=== PATIENT | female | born 1995 | race American Indian/Alaskan Native ===

== ENCOUNTER 2017-03-19 19:34 | Emergency (ER) | payer MEDICAID ==
[2017-03-19] MEDS ORDERED: Nitrofurantoin Monohydrate/Macrocrystalline 100 MG Cap PO ONE ×2 (19:35→22:14)
[2017-03-19] MEDS ORDERED: Sodium Chloride 0.9% 1,000 ML IV ONE (19:38)
--- NOTE | 2017-03-19 19:40 | EDM.PDOC ---
ED HPI GENERAL MEDICAL PROBLEM - General Chief Complaint: General Stated Complaint: BLEEDING.PREG. NOT SURE HOW FAR ALONG Time Seen by Provider: 03/19/17 19:36 Source of Information: Reports: Patient History Limitations: Reports: No Limitations - History of Present Illness INITIAL COMMENTS - FREE TEXT/NARRATIVE: 21 yo [place] Female c/o early w/ vaginal bleeding this AM w/ wiping. Pt. is [id number] Onset: Today Onset Date: 03/19/17 Onset Time: 09:00 Duration: Hour(s): Location: Reports: Pelvis Improves with: Reports: None Worsens with: Reports: None Associated Symptoms: Reports: No Other Symptoms - Related Data Allergies Allergy/AdvReac Type Severity Reaction Status Date / Time Penicillins Allergy Cannot Verified 03/19/17 19:45 Remember Home Meds: Home Meds NK [No Known Home Meds] 0 mg PO DAILY 03/19/17 [History] ED ROS GENERAL - Review of Systems Review Of Systems: See Below Constitutional: Reports: No Symptoms HEENT: Reports: No Symptoms Respiratory: Reports: No Symptoms Cardiovascular: Reports: No Symptoms Endocrine: Reports: No Symptoms GI/Abdominal: Reports: No Symptoms : Reports: Other (pink @ 7AM) Musculoskeletal: Reports: No Symptoms Skin: Reports: No Symptoms Neurological: Reports: No Symptoms Psychiatric: Reports: No Symptoms Hematologic/Lymphatic: Reports: No Symptoms Immunologic: Reports: No Symptoms ED EXAM - Physical Exam Exam: See Below Exam Limited By: No Limitations General Appearance: Alert, WD/WN, No Apparent Distress Eye Exam: Bilateral Eye: EOMI, PERRL Ears: Normal External Exam Nose: Normal Inspection Throat/Mouth: Normal Inspection Head: Atraumatic Neck: Normal Inspection Respiratory/Chest: No Respiratory Distress Cardiovascular: Normal Peripheral Pulses, Regular Rate, Rhythm GI/Abdominal Exam: Normal Bowel Sounds, Soft, Non-Tender (Female) Exam: Normal Bimanual Exam, Normal External Exam, Normal Speculum Exam, Other (min dark blood oin vaginal vault and cervical os closed) Extremities: Normal Inspection Neurological: Alert, Oriented, CN II-XII Intact Psychiatric: Normal Affect, Normal Mood Skin Exam: Warm, Dry, Intact Lymphatic: No Adenopathy Course - Vital Signs Last Recorded V/S: Last Vital Signs Temp 36.9 C 03/19/17 21:40 Pulse 105 H 03/19/17 21:40 Resp 16 03/19/17 21:40 BP 107/48 L 03/19/17 21:40 Pulse Ox 100 03/19/17 21:40 - Orders/Labs/Meds Orders: Active Orders 24 hr Category Date Time Status CULTURE GENITAL [RM] Stat Lab 03/19/17 20:10 Received Nitrofurantoin Mclean/Macrocryst [Macrobid] Med 03/19/17 22:14 Once 100 mg PO ONETIME ONE Labs: Laboratory Tests 03/19/17 03/19/17 03/19/17 Range/Units 19:38 19:38 19:47 WBC 17.6 H (5.0-10.0) 10^3/uL RBC 4.39 (4.2-5.4) 10^6/uL Hgb 13.1 (12.0-16.0) g/dL Hct 38.7 (37.0-47.0) % MCV 88.2 (80-100) fL MCH 29.8 (27.0-34.0) pg MCHC 33.9 (33.0-35.0) g/dL Plt Count 404 (150-450) 10^3/uL Neut % (Auto) 69.8 (42.2-75.2) % Lymph % (Auto) 23.3 (20.5-50.1) % Mclean % (Auto) 6.0 (2-8) % Eos % (Auto) 0.6 L (1.0-3.0) % Baso % (Auto) 0.3 (0.0-1.0) % Sodium (135-145) mmol/L Potassium (3.6-5.0) mmol/L Chloride (101-111) mmol/L Carbon Dioxide (21.0-31.0) mmol/L Anion Gap BUN (7-18) mg/dL Creatinine (0.6-1.3) mg/dL Est Cr Clr Drug Dosing mL/min Estimated GFR (MDRD) BUN/Creatinine Ratio Glucose (74-105) mg/dL Calcium (8.4-10.2) mg/dl Magnesium (1.8-2.5) mg/dL Total Bilirubin (0.2-1.0) mg/dL AST (10-42) IU/L ALT (10-60) IU/L Alkaline Phosphatase (42-121) IU/L Total Protein (6.7-8.2) g/dl Albumin (3.2-5.5) g/dl Globulin Albumin/Globulin Ratio HCG, Quant (0-25) mIU/ml Beta HCG, Quant mIU/ml Urine Color Yellow (YELLOW) Urine Appearance Slightly cloudy (CLEAR) Urine pH 6.0 (5.0-9.0) Ur Specific [place] 1.025 (1.005-1.030) Urine Protein Negative (NEGATIVE) Urine Glucose (UA) Negative (NEGATIVE) Urine Ketones Negative (NEGATIVE) Urine Occult Blood Small H (NEGATIVE) Urine Nitrite Negative (NEGATIVE) Urine Bilirubin Negative (NEGATIVE) Urine Urobilinogen 0.2 (0.2-1.0) mg/dL Ur Leukocyte Esterase Negative (NEGATIVE) Urine RBC 5-10 H /HPF Urine WBC 5-10 H (0-5/HPF) /HPF Ur Epithelial Cells Moderate H /HPF Urine Bacteria Rare (0-FEW/HPF) /HPF Urine Mucus Rare /LPF Urine HCG, Qual Positive Blood Type 03/19/17 03/19/17 03/19/17 Range/Units 19:47 19:47 19:47 WBC (5.0-10.0) 10^3/uL RBC (4.2-5.4) 10^6/uL Hgb (12.0-16.0) g/dL Hct (37.0-47.0) % MCV (80-100) fL MCH (27.0-34.0) pg MCHC (33.0-35.0) g/dL Plt Count (150-450) 10^3/uL Neut % (Auto) (42.2-75.2) % Lymph % (Auto) (20.5-50.1) % Mclean % (Auto) (2-8) % Eos % (Auto) (1.0-3.0) % Baso % (Auto) (0.0-1.0) % Sodium 138 (135-145) mmol/L Potassium 3.2 L (3.6-5.0) mmol/L Chloride 105 (101-111) mmol/L Carbon Dioxide 22.0 (21.0-31.0) mmol/L Anion Gap 14.2 BUN 13 (7-18) mg/dL Creatinine 0.5 L (0.6-1.3) mg/dL Est Cr Clr Drug Dosing 135.43 mL/min Estimated GFR (MDRD) > 60 BUN/Creatinine Ratio 26.00 Glucose 84 (74-105) mg/dL Calcium 9.2 (8.4-10.2) mg/dl Magnesium (1.8-2.5) mg/dL Total Bilirubin 0.7 (0.2-1.0) mg/dL AST 24 (10-42) IU/L ALT 15 (10-60) IU/L Alkaline Phosphatase 70 (42-121) IU/L Total Protein 7.1 (6.7-8.2) g/dl Albumin 4.3 (3.2-5.5) g/dl Globulin 2.8 Albumin/Globulin Ratio 1.54 HCG, Quant > 1371 H (0-25) mIU/ml Beta HCG, Quant 46595 mIU/ml Urine Color (YELLOW) Urine Appearance (CLEAR) Urine pH (5.0-9.0) Ur Specific [place] (1.005-1.030) Urine Protein (NEGATIVE) Urine Glucose (UA) (NEGATIVE) Urine Ketones (NEGATIVE) Urine Occult Blood (NEGATIVE) Urine Nitrite (NEGATIVE) Urine Bilirubin (NEGATIVE) Urine Urobilinogen (0.2-1.0) mg/dL Ur Leukocyte Esterase (NEGATIVE) Urine RBC /HPF Urine WBC (0-5/HPF) /HPF Ur Epithelial Cells /HPF Urine Bacteria (0-FEW/HPF) /HPF Urine Mucus /LPF Urine HCG, Qual Blood Type O POSITIVE 03/19/17 Range/Units 19:47 WBC (5.0-10.0) 10^3/uL RBC (4.2-5.4) 10^6/uL Hgb (12.0-16.0) g/dL Hct (37.0-47.0) % MCV (80-100) fL MCH (27.0-34.0) pg MCHC (33.0-35.0) g/dL Plt Count (150-450) 10^3/uL Neut % (Auto) (42.2-75.2) % Lymph % (Auto) (20.5-50.1) % Mclean % (Auto) (2-8) % Eos % (Auto) (1.0-3.0) % Baso % (Auto) (0.0-1.0) % Sodium (135-145) mmol/L Potassium (3.6-5.0) mmol/L Chloride (101-111) mmol/L Carbon Dioxide (21.0-31.0) mmol/L Anion Gap BUN (7-18) mg/dL Creatinine (0.6-1.3) mg/dL Est Cr Clr Drug Dosing mL/min Estimated GFR (MDRD) BUN/Creatinine Ratio Glucose (74-105) mg/dL Calcium (8.4-10.2) mg/dl Magnesium 2.0 (1.8-2.5) mg/dL Total Bilirubin (0.2-1.0) mg/dL AST (10-42) IU/L ALT (10-60) IU/L Alkaline Phosphatase (42-121) IU/L Total Protein (6.7-8.2) g/dl Albumin (3.2-5.5) g/dl Globulin Albumin/Globulin Ratio HCG, Quant (0-25) mIU/ml Beta HCG, Quant mIU/ml Urine Color (YELLOW) Urine Appearance (CLEAR) Urine pH (5.0-9.0) Ur Specific [place] (1.005-1.030) Urine Protein (NEGATIVE) Urine Glucose (UA) (NEGATIVE) Urine Ketones (NEGATIVE) Urine Occult Blood (NEGATIVE) Urine Nitrite (NEGATIVE) Urine Bilirubin (NEGATIVE) Urine Urobilinogen (0.2-1.0) mg/dL Ur Leukocyte Esterase (NEGATIVE) Urine RBC /HPF Urine WBC (0-5/HPF) /HPF Ur Epithelial Cells /HPF Urine Bacteria (0-FEW/HPF) /HPF Urine Mucus /LPF Urine HCG, Qual Blood Type Meds: Medications Discontinued Medications Generic Name Dose Route Start Last Admin Trade Name Freq PRN Reason Stop Dose Admin Sodium Chloride 1,000 mls @ 999 mls/hr 03/19/17 19:38 03/19/17 19:55 Normal Saline IV 03/19/17 20:38 999 mls/hr .BOLUS ONE Administration Potassium Chloride 40 meq 03/19/17 20:30 03/19/17 20:43 Klor-Con 10 PO 03/19/17 20:31 40 meq ONETIME ONE Administration Departure - Departure Time of Disposition: 22:14 Disposition: Home, Self-Care 01 Condition: Good Clinical Impression: Threatened Urinary tract infection Qualifiers: Urinary tract infection type: acute cystitis Hematuria presence: with hematuria Qualified Code(s): N30.01 - Acute cystitis with hematuria - Discharge Information Forms: ED Department Discharge Additional Instructions: Rest Increase intake of Water and Cranberry Juice Take the oral antibiotic as prescribed and complete: MACROBID 100mg BID # 14 Repeat the Serum Beta-HCG in 48 hours Check on Genital culture in 48 hours NOTHING IN VAGINA UNTIL GENITAL CULTURES REVIEWED WITH YOUR PCP - My Orders Last 24 Hours: My Active Orders 03/19/17 20:10 CULTURE GENITAL [RM] Stat 03/19/17 22:14 Nitrofurantoin Mclean/Macrocryst [Macrobid] 100 mg PO ONETIME ONE - Assessment/Plan Last 24 Hours: My Active Orders 03/19/17 20:10 CULTURE GENITAL [RM] Stat 03/19/17 22:14 Nitrofurantoin Mclean/Macrocryst [Macrobid] 100 mg PO ONETIME ONE
[2017-03-19 20:13] LABS: CHLORIDE,CL 105 mmol/L (101-111); SODIUM,NA 138 mmol/L (135-145)
[2017-03-19] MEDS ORDERED: Potassium Chloride 10 MEQ Tab.ER PO ONE (20:30)
[2017-03-19] MEDS ORDERED: Nitrofurantoin Monohydrate/Macrocrystalline 100 MG Cap ONE (22:16)
== END 2017-03-19 22:28 | disposition home or self-care (01) ==
LOC: DL.ED 19:34
DX: O20.0 Threatened abortion (principal); O23.11 Infections of bladder in pregnancy, first trimester; Z88.0 Allergy status to penicillin
CPT/HCPCS: 36415; 80053; 81001; 81025; 83735; 84702; 85025; 86900; 86901; 87070; 87210; 96361; 96374; 99284; A9270; J7030

== ENCOUNTER 2017-05-19 12:37 | Day surgery (SDC) | payer MEDICAID ==
--- NOTE | 2017-05-19 09:48 | HP ---
HISTORY: This patient is a 22-year-old, 3, para 1, AB 2 patient, who has been followed by Dr. Cabrera. Dr. Cabrera has thoroughly discussed her with me late this past Thursday afternoon. Essentially, the patient should be at approximately 13 weeks gestation. She has had approximately 2 weeks of intermittent vaginal bleeding and apparently did pass a small amount of vaginal tissue about 5 or 6 days back. I have kept in close contact with the patient over the weekend on the telephone. She denies any fever. She denies any abdominal pain, although once in a while, she does still have some slight cramping. She still continues to have a slight amount of intermittent vaginal bleeding. Her ultrasound that was done also late in the afternoon of 05/15/2017, revealed a nonviable, approximately 10 week 4 day gestation by crown- rump length with no heart tones of course. The patient is Rh positive or O positive. Because of the incomplete miscarriage and her failure to pass the tissue on its own, the patient will need D and C. The D and C option as well as the option of Cytotec was discussed earlier with her by Dr. Cabrera. The patient now wishes to have D and C, and we certainly make that recommendation to her as well. Interestingly, the patient did give some thought yesterday afternoon when I saw her in the clinic and for a while, she wanted to use Cytotec medication. Cytotec and a small amount of Percocet were offered to her by prescription. It appears that the patient is not going to utilize that, but will be coming to the hospital this morning at 10:30 a.m. for D and C at noon. She was given full instructions to not have anything to eat or drink after midnight last night and to call either me or Dr. Cabrera through the hospital lithographic camera operator if any questions or problems last night. PAST MEDICAL HISTORY: She does have a history of asthma which is quite stable for her. MEDICATIONS: 1. She does use her albuterol inhaler p.r.n. 2. Other medications at present consist of vitamins. PREVIOUS SURGERY: None. ALLERGIES: She did have a rash as a young child to penicillin. She otherwise denies any heart, liver, or renal disease. FAMILY HISTORY: One grandmother had cervical cancer. There is no diabetes in the family. SOCIAL HISTORY: She does live in [place] with her mother. She does have a 6- year-old boy at the present time. She does smoke about 6 cigarettes daily and we have emphasized to her the importance of tapering down further and smoking cessation of course. She denies the usage of alcohol and denies the usage of street drugs. PHYSICAL EXAMINATION: Vital Signs: The patient is afebrile in the clinic yesterday afternoon. Blood pressure 114/76 and pulse is 72. HEENT: Buccal mucosa is well hydrated and sclerae are nonicteric. Lungs: Clear to A. Heart: Regular rhythm without murmur. Abdomen: Soft and nontender. There is negative CVA tenderness. Pelvic examination does reveal the cervix to have a slight amount of mucus like old dark blood coming from the cervix. Cervix appears to be closed. There are no lesions on the cervix. On bimanual exam, the uterus does feel about 10 weeks size and essentially nontender. There are no adnexal masses or tenderness. IMPRESSION: Incomplete miscarriage with ultrasound revealing no chance of viability and possibly about a 10 week 4 day size products of conception still in the uterus. The patient is Rh positive. PLAN: We have discussed with her previously the option of Cytotec medication for evacuation of the uterus versus D and C. The patient has thought these matters over carefully and kept in very close contact with me on the telephone over the weekend where we have visited daily with phone call. The patient does see me again on Thursday afternoon and did not want to come back down to [facility] until Thursday since her mother was coming for a medical appointment also and that was her only ride. We have discussed her with the operating room and we have been assigned a slot to proceed with D and C today at noon. The patient will come in at 10:30 a.m. this morning and I have given her thorough instructions to remain n.p.o. and call either me or Dr. Cabrera before then if questions or problems. We have also thoroughly discussed with her the goals and procedure for D and C as well as the slight possibility for complications and adverse outcome from a D and C. The patient also be given very thorough instructions for postoperative followup. Also, we will utilize preoperative ceftriaxone 1 g IV before procedure. [facility] /[id number]
[2017-05-19] MEDS ORDERED: fentaNYL 100 MCG/2 ML SDV IV ONE (12:38)
[2017-05-19] MEDS ORDERED: Glycopyrrolate 0.2 MG/ML 2 ML SDV IV ONE (12:38)
[2017-05-19] MEDS ORDERED: Ondansetron 4 MG/2 ML SDV IV ONE (12:38)
[2017-05-19] MEDS ORDERED: Ketorolac 30 MG/ML SDV IVPUSH ONE (12:38)
[2017-05-19] MEDS ORDERED: Midazolam 1 MG/ML 2 ML SDV IV ONE (12:38)
[2017-05-19] MEDS ORDERED: Dexamethasone 4 MG/ML SDV IV ONE (12:38)
[2017-05-19] MEDS ORDERED: Propofol 200 MG/20 ML SDV IV ONE (12:38)
[2017-05-19] MEDS ORDERED: Lactated Ringers 1,000 ML IV SCH (13:00)
[2017-05-19] MEDS ORDERED: cefTRIAXone 1 GM in Sodium Chloride 0.9% 50 ML IV ONE ×2 (14:15→14:30)
[2017-05-19] MEDS ORDERED: Silver Nitrate Applicator Each ONE (14:49)
[2017-05-19] MEDS ORDERED: Ferric Subsulfate Topical Soln 8 GM (8 ML) Bottle ONE (14:49)
[2017-05-19] MEDS ORDERED: Oxytocin/Normal Saline 30 UNIT/500 ML BAG ONE (14:49)
[2017-05-19] MEDS ORDERED: Oxytocin/Normal Saline 30 UNIT/500 ML BAG IV SCH (15:00)
--- NOTE | 2017-05-19 17:03 | OR ---
DATE: 05/19/2017 PREOPERATIVE DIAGNOSIS: Incomplete miscarriage at approximately 13 weeks by dates, but 10-1/2 weeks' gestation by size. OPERATION PERFORMED: D and C with suction curettage. POSTOPERATIVE DIAGNOSIS: Incomplete miscarriage at approximately 13 weeks by dates, but 10-1/2 weeks' gestation by size. ANESTHESIA: General. COMPLICATIONS: None. ESTIMATED BLOOD LOSS: 150 mL. Please see the description below. DESCRIPTION OF PROCEDURE: After the patient was routinely prepped and draped in the usual fashion and after satisfactory general anesthesia was achieved, a repeat pelvic examination was done at this time. The uterus was thought to be about 10-week size and in the mid to somewhat retro position. There were no adnexal masses. The cervix was grasped carefully with the single-tooth tenaculum and the uterus was now sounded to approximately 8-1/2 cm. Now, the endocervical canal was carefully and progressively dilated to approximately #10. Now, the curette was introduced and a moderate amount of tissue was obtained on the curettage. Great caution was taken to make sure that all aspects of the endometrial cavity were carefully and systematically curetted, but we were careful to not over curette this delicate organ. Now, the #8 curved suction cannula was also carefully introduced, and a slight amount of further tissue was obtained on the suction curettage. All of the specimens were submitted to the pathologist. IV intraoperative Pitocin was now begun. The uterus did contract down nicely. It should be mentioned that 1 more time after the suction curettage was done, I did a careful brief sharp curettage again and no further tissue was obtained. All of the instruments were now removed. Estimated blood loss was approximately 150 mL. [place] and sponge count and instrument counts were reported as correct. The patient tolerated the procedure well and went to the recovery room area in stable condition. [facility] /[id number]
[2017-05-19] MEDS ORDERED: Misoprostol 400 MCG (4 X 100 MCG TAB) PO ONE (17:59)
[2017-05-19] MEDS ORDERED: Methylergonovine 0.2 MG Tab PO ONE (18:01)
[2017-05-19] MEDS ORDERED: Acetaminophen/Codeine 300-30 MG Tab PO ONE (18:02)
--- NOTE | 2017-05-20 11:58 | DISCH ---
HISTORY: This patient is a 22-year-old female who has had D and C because of incomplete miscarriage on 05/19/2017. Please see my dictated H and P and operative report in the EHR. D and C was uncomplicated in the postoperative recovery. Since it was late in the day when the D and C was completed, the patient was convalescing and recovering on the Medical-Surgical Unit when the nurses called me at approximately 5:30 p.m. last night. The patient was aggravated and upset and it appears mostly because the patient's mother was not keeping in contact with the patient about a ride home back to the [facility]. The nurses report to me that the patient got very upset and literally ripped out her IV and said she was leaving the hospital. The nurses did plead with her and explain why that was not a good idea at all. The patient did sign the AMA or against medical advice form and then did walk out of the hospital for a while, then about 5 to 10 minutes later, the patient did come back and stated that she noticed that she was having some vaginal bleeding. She also could not find a ride or a friend locally in [facility] to transport her away from the hospital. The patient did agree to stay with us for a further amount of time to finish up her postoperative recovery. Because of the [id number] vaginal bleeding that the patient was having, we did give her Methergine 0.2 mg p.o. and also Cytotec 400 mcg p.o. The patient also requested pain medication and she was given 1 to 2 tablets of Tylenol No. 3 with codeine. The patient did calm down and agree to be observed further. There was no excessive bleeding later on that was noted on the perineal pad by the nurses. The nurses and I have kept in very close contact on the telephone. The patient continued to remain very stable and was calmer, and at about 7:30 p.m. the patient's mother did show up with an automobile and agree to take her daughter back home to [place]. I did thoroughly discuss follow up instructions with Cora on the telephone. She was discharged home at this time in stable condition. She has tolerated solid food actually. There was no excessive bleeding. DISCHARGE INSTRUCTIONS: The following instructions were given to the patient. She was instructed to contact me at any time or Dr. Cabrera, her primary care provider, who is familiar with her if there was any excessive bleeding, unusual pain, fever, or any questions or problems whatsoever. She was instructed to please avoid intercourse for 3 weeks. She was told to see either me or Dr. Cabrera in the clinic for a postoperative visit in 10 to 14 days. For discharge medications: 1. She was permitted to have 2 more Tylenol No.3 with instructions to take 1 late tonight if she had to and she could take one 6 to 8 hours after that p.r.n. 2. She will also use ibuprofen 600 mg p.o. q.6 hours p.r.n. with food or meals for any cramping or discomfort. The patient feels very comfortable with the fact that she will be riding by car back to the [facility]. The patient is Rh positive and does not need RhoGAM of course. All of her questions had been answered. The nurses and I have felt very comfortable with the status of the patient when she did leave the hospital the second time for home. DIAGNOSIS: Incomplete miscarriage at approximately 13 weeks 3 days' gestation by dates and 10 weeks 4 days' gestation by ultrasound size. OPERATIONS AND PROCEDURES: D and C with suction curettage on 05/19/2017. [facility] /[id number]
== END 2017-05-19 20:05 | disposition home or self-care (01) ==
LOC: DL.SDS 12:37
PROVIDERS: ATTEND Obstetrics & Gynecology
DX: O03.4 Incomplete spontaneous abortion without complication (principal); O02.89 Other abnormal products of conception; J45.909 Unspecified asthma, uncomplicated; Z3A.10 10 weeks gestation of pregnancy; Z88.0 Allergy status to penicillin; F17.210 Nicotine dependence, cigarettes, uncomplicated
CPT/HCPCS: 00940; 59812; A9270; J0696; J1100; J1885; J2250; J2405; J2590; J2704; J3010; J7050; J7120; J3490